=== PATIENT | female | born 1975 | race Caucasian/White ===

== ENCOUNTER 2018-03-07 20:27 | Emergency (ER) | payer BC ==
[2018-03-07] MEDS ORDERED: Ketorolac 30 MG/ML SDV IVPUSH ONE (20:35)
[2018-03-07] MEDS ORDERED: Sodium Chloride 0.9% 10 ML Syringe FLUSH PRN (20:35)
[2018-03-07] MEDS ORDERED: Sodium Chloride 0.9% 2.5 ML Syringe FLUSH PRN (20:35)
[2018-03-07] MEDS ORDERED: Ondansetron 4 MG/2 ML SDV IVPUSH ONE (20:35)
[2018-03-07] MEDS ORDERED: Sodium Chloride 0.9% 1,000 ML IV ONE (20:35)
--- NOTE | 2018-03-07 20:36 | EDM.PDOC ---
ED HPI GENERAL MEDICAL PROBLEM - General Chief Complaint: Headache Stated Complaint: BAD MIGRANE Time Seen by Provider: 03/07/18 20:46 Source of Information: Reports: Patient History Limitations: Reports: No Limitations - History of Present Illness INITIAL COMMENTS - FREE TEXT/NARRATIVE: HISTORY AND PHYSICAL: History of present illness: Patient is a 43-year-old female here with complaint of migraine. She states that she has a history of migraine headaches and hasn't had one this bad in approximately 6 weeks. She has been getting migraines about 3 times a week. Used to be on sumatriptan injections for migraine but reports that these were too expensive and is no longer taking this. She does not have a primary care provider Jamal. He states this current migraine started this morning and has progressively gotten worse throughout the day. She reports she started vomiting an hour and a half ago and has had 2 episodes of vomiting. She states pain is all over her head and throbbing pressure. She reports photophobia and phonophobia, nausea, vomiting. She denies any abdominal pain, chest pain, shortness of breath, diarrhea, fever, chills. Review of systems: As per history of present illness and below otherwise all systems reviewed and negative. Past medical history: As per history of present illness and as reviewed below otherwise noncontributory. Surgical history: As per history of present illness and as reviewed below otherwise noncontributory. Social history: No reported history of drug or alcohol abuse. Family history: As per history of present illness and as reviewed below otherwise noncontributory. Physical exam: General: Patient sitting comfortably in no acute distress and nontoxic appearing HEENT: Atraumatic, normocephalic, pupils reactive, negative for conjunctival pallor or scleral icterus, mucous membranes moist, throat clear, neck supple, nontender, trachea midline. No meningeal signs. Lungs: Clear to auscultation, breath sounds equal bilaterally, chest nontender. Heart: S1S2, regular, negative for clicks, rubs, or overt murmur. Abdomen: Soft, nondistended, nontender. Negative for masses or hepatosplenomegaly. Negative for costovertebral tenderness. Pelvis: Stable nontender. Genitourinary: Deferred. Rectal: Deferred. Extremities: Atraumatic, negative for cords or calf pain. Neurovascular unremarkable. Neuro: Awake, alert, oriented. Cranial nerves II through XII unremarkable. Cerebellum unremarkable. Motor and sensory unremarkable throughout. Exam nonfocal. Notes: Diagnostics: Therapeutics: 1L NS IV 30mg Toradol IV 4mg Zofran IV 50mg Benadryl IV 10mg Reglan IV 1mg Ativan IV Prescriptions: None Impression: Migraine Plan: Signed out to Dr. Adam at 2200 1. Drink plenty of fluids and take Excedrin as needed for headache 2. Follow up with primary care provider to further address migraines 3. Return to ED as needed as discussed Definitive disposition and diagnosis as appropriate pending reevaluation and review of above. head Pain Score (Numeric/FACES): 9 - Related Data Allergies Allergy/AdvReac Type Severity Reaction Status Date / Time codeine Allergy Hives Verified 03/07/18 20:48 Home Meds: Home Meds Cyanocobalamin (Vitamin B12) [Vitamin B12] 1 tab PO DAILY 03/07/18 [History] Magnesium 0 tab PO DAILY 03/07/18 [History] ED ROS GENERAL - Review of Systems Review Of Systems: ROS reveals no pertinent complaints other than HPI. - Physical Exam Exam: See Below (see dictation) Course - Vital Signs Last Recorded V/S: Last Vital Signs Temp 36.1 C 03/07/18 20:27 Pulse 58 L 03/07/18 21:15 Resp 18 03/07/18 21:15 BP 131/87 03/07/18 21:15 Pulse Ox 96 03/07/18 21:15 - Orders/Labs/Meds Orders: Active Orders 24 hr Category Date Time Status Sodium Chloride 0.9% [Saline Flush] Med 03/07/18 20:35 Active 10 ml FLUSH ASDIRECTED PRN Sodium Chloride 0.9% [Saline Flush] Med 03/07/18 20:35 Active 2.5 ml FLUSH ASDIRECTED PRN Saline Lock Insert [OM.PC] Stat Oth 03/07/18 20:35 Ordered Medication Orders Sodium Chloride (Saline Flush) 10 ml FLUSH ASDIRECTED PRN PRN Reason: Keep Vein Open Sodium Chloride (Saline Flush) 2.5 ml FLUSH ASDIRECTED PRN PRN Reason: Keep Vein Open Meds: Medications Generic Name Dose Route Start Last Admin Trade Name Freq PRN Reason Stop Dose Admin Sodium Chloride 10 ml 03/07/18 20:35 Saline Flush FLUSH ASDIRECTED PRN Keep Vein Open Sodium Chloride 2.5 ml 03/07/18 20:35 Saline Flush FLUSH ASDIRECTED PRN Keep Vein Open Discontinued Medications Generic Name Dose Route Start Last Admin Trade Name Jadq PRN Reason Stop Dose Admin Diphenhydramine HCl 50 mg 03/07/18 21:18 03/07/18 21:36 Benadryl IVPUSH 03/07/18 21:19 50 mg ONETIME ONE Administration Sodium Chloride 1,000 mls @ 999 mls/hr 03/07/18 20:35 03/07/18 20:47 Normal Saline IV 03/07/18 21:35 999 mls/hr STAT ONE Administration Ketorolac Tromethamine 30 mg 03/07/18 20:35 03/07/18 20:48 Toradol IVPUSH 03/07/18 20:36 30 mg ONETIME ONE Administration Lorazepam 1 mg 03/07/18 21:18 03/07/18 21:36 Ativan IVPUSH 03/07/18 21:19 1 mg ONETIME ONE Administration Metoclopramide HCl 10 mg 03/07/18 21:48 Reglan IVPUSH 03/07/18 21:49 ONETIME ONE Ondansetron HCl 4 mg 03/07/18 20:35 03/07/18 20:47 Zofran IVPUSH 03/07/18 20:36 4 mg ONETIME ONE Administration Departure - Departure Time of Disposition: 21:59 Disposition: Home, Self-Care 01 Condition: Good Clinical Impression: Migraine - Discharge Information Forms: ED Department Discharge Additional Instructions: The following information is given to patients seen in the emergency department who are being discharged to home. This information is to outline your options for follow-up care. We provide all patients seen in our emergency department with a follow-up referral. The need for follow-up, as well as the timing and circumstances, are variable depending upon the specifics of your emergency department visit. If you don't have a primary care physician on staff, we will provide you with a referral. We always advise you to contact your personal physician following an emergency department visit to inform them of the circumstance of the visit and for follow-up with them and/or the need for any referrals to a consulting specialist. The emergency department will also refer you to a specialist when appropriate. This referral assures that you have the opportunity for follow-up care with a specialist. All of these measure are taken in an effort to provide you with optimal care, which includes your follow-up. Under all circumstances we always encourage you to contact your private physician who remains a resource for coordinating your care. When calling for follow-up care, please make the office aware that this follow-up is from your recent emergency room visit. If for any reason you are refused follow-up, please contact the [facility] Emergency Department at and asked to speak to the emergency department charge nurse. [facility] Primary Care [address] [place] [address] [facility] [address] [place] [id number] 1. Drink plenty of fluids and take Excedrin as needed for headache 2. Follow up with primary care provider to further address migraines 3. Return to ED as needed as discussed - My Orders Last 24 Hours: My Active Orders 03/07/18 20:35 Sodium Chloride 0.9% [Saline Flush] 10 ml FLUSH ASDIRECTED PRN Sodium Chloride 0.9% [Saline Flush] 2.5 ml FLUSH ASDIRECTED PRN Saline Lock Insert [OM.PC] Stat - Assessment/Plan Last 24 Hours: My Active Orders 03/07/18 20:35 Sodium Chloride 0.9% [Saline Flush] 10 ml FLUSH ASDIRECTED PRN Sodium Chloride 0.9% [Saline Flush] 2.5 ml FLUSH ASDIRECTED PRN Saline Lock Insert [OM.PC] Stat
[2018-03-07] MEDS ORDERED: LORazepam 2 MG/ML SDV IVPUSH ONE (21:18)
[2018-03-07] MEDS ORDERED: diphenhydrAMINE 50 MG/ML SDV IVPUSH ONE (21:18)
[2018-03-07] MEDS ORDERED: Metoclopramide 10 MG/2 ML SDV IVPUSH ONE (21:48)
[2018-03-07] MEDS ORDERED: Acetaminophen/Butalbital/Caffeine 325-50-40 MG Tab PO ONE (22:30)
== END 2018-03-07 22:56 | disposition home or self-care (01) ==
LOC: MW.ED 20:27
DX: G43.909 Migraine, unspecified, not intractable, without status migrainosus (principal); Z88.5 Allergy status to narcotic agent
CPT/HCPCS: 96361; 96374; 96375; 99283; A9270; J1200; J1885; J2060; J2405; J2765; J7040

== ENCOUNTER 2018-08-10 12:04 | Emergency (ER) | payer BC ==
[2018-08-10] MEDS: Ondansetron 4 MG/2 ML SDV IVPUSH ONE (12:35)
[2018-08-10] MEDS: Sodium Chloride 0.9% 1,000 ML IV ONE ×2 (12:35→13:26)
[2018-08-10] MEDS: Ketorolac 30 MG/ML SDV IVPUSH ONE (12:36)
[2018-08-10] MEDS: Insulin Regular, Human 100 Units/ML 10 ML Vial IVPUSH ONE (12:43)
[2018-08-10] MEDS: LORazepam 2 MG/ML SDV IVPUSH ONE (13:21)
[2018-08-10] MEDS: diphenhydrAMINE 50 MG/ML SDV IVPUSH ONE (13:21)
--- NOTE | 2018-08-10 13:51 | EDM.PDOC ---
ED HPI GENERAL MEDICAL PROBLEM - General Chief Complaint: Headache Stated Complaint: MIGRANE Time Seen by Provider: 08/10/18 13:49 Source of Information: Reports: Patient - History of Present Illness INITIAL COMMENTS - FREE TEXT/NARRATIVE: HISTORY AND PHYSICAL: History of present illness: [Patient presents with migraine headache, she has a long history of migraines recent MRI of her head is on file however radiology is not read the film at she has been on multiple medication regimens with varying degrees of benefit and side effects No fever no vomiting no chills sweats no chest pain shortness breath dizziness palpitation no bowel or urine symptoms ] Review of systems: As per history of present illness and below otherwise all systems reviewed and negative. Past medical history: As per history of present illness and as reviewed below otherwise noncontributory. Surgical history: As per history of present illness and as reviewed below otherwise noncontributory. Social history: No reported history of drug or alcohol abuse. Family history: As per history of present illness and as reviewed below otherwise noncontributory. Physical exam: HEENT: Atraumatic, normocephalic, pupils reactive, negative for conjunctival pallor or scleral icterus, mucous membranes moist, throat clear, neck supple, nontender, trachea midline. Lungs: Clear to auscultation, breath sounds equal bilaterally, chest nontender. Heart: S1S2, regular, negative for clicks, rubs, or JVD. Abdomen: Soft, nondistended, nontender. Negative for masses or hepatosplenomegaly. Negative for costovertebral tenderness. Pelvis: Stable nontender. Genitourinary: Deferred. Rectal: Deferred. Extremities: Atraumatic, negative for cords or calf pain. Neurovascular unremarkable. Neuro: Awake, alert, oriented. Cranial nerves II through XII unremarkable. Cerebellum unremarkable. Motor and sensory unremarkable throughout. Exam nonfocal. Diagnostics: [MRI head on file from previous no radiology read available at this time ] Therapeutics: [] normal saline [place] Zofran Ativan Benadryl l Impression: [ migraine ] Definitive disposition and diagnosis as appropriate pending reevaluation and review of above. Headache Pain Score (Numeric/FACES): 10 - Related Data Allergies Allergy/AdvReac Type Severity Reaction Status Date / Time codeine Allergy Hives Verified 08/10/18 12:21 Home Meds: Home Meds Cyanocobalamin (Vitamin B12) [Vitamin B12] 1 tab PO DAILY 03/07/18 [History] Acetaminophen/Caffeine [Excedrin Tension Headache Cplt] 2 tab PO ASDIRECTED PRN 04/28/18 [History] Ascorbic Acid [Vitamin C] 1,000 mg PO DAILY 04/28/18 [History] Estradiol 1 mg PO DAILY 04/28/18 [History] Melatonin/Pyridoxine HCl (B6) [Melatonin 3 mg Tablet] 3 mg PO BEDTIME PRN [History] Multivitamin [Multivitamins] 1 each PO DAILY 04/28/18 [History] Past Medical History 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: Reports: Sleep 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: Neurological History: Reports: Migraines - Infectious Disease History Infectious Disease History: Reports: Chicken Pox - Past Surgical History GI Surgical History: Reports: Appendectomy Female Surgical History: Reports: Hysterectomy, Tubal Ligation Neurological Surgical History: Reports: Laminectomy, Spinal Fusion Musculoskeletal Surgical History: Reports: Other (See Below) Other Musculoskeletal Surgeries/Procedures:: back surgery Social & Family History - Family History Family Medical History: Noncontributory - Tobacco Use Smoking Status *Q: Never Smoker - Caffeine Use Caffeine Use: Reports: Coffee - Recreational Drug Use Recreational Drug Use: No ED ROS GENERAL - Review of Systems Review Of Systems: See Below ED EXAM, GENERAL - Physical Exam Exam: See Below Course - Vital Signs Last Recorded V/S: Last Vital Signs Temp 97.4 F 08/10/18 12:17 Pulse 67 08/10/18 13:30 Resp 16 08/10/18 13:30 BP 137/72 08/10/18 13:30 Pulse Ox 98 08/10/18 13:30 - Orders/Labs/Meds Orders: Active Orders 24 hr Category Date Time Status Sodium Chloride 0.9% [Normal Saline] 1,000 ml Med 08/10/18 13:15 Active IV STAT Medication Orders Sodium Chloride (Normal Saline) 1,000 mls @ 999 mls/hr IV STAT ONE Stop: 08/10/18 14:15 Last Admin: 08/10/18 13:26 Dose: 999 mls/hr Meds: Medications Generic Name Dose Route Start Last Admin Trade Name Freq PRN Reason Stop Dose Admin Sodium Chloride 1,000 mls @ 999 mls/hr 08/10/18 13:15 08/10/18 13:26 Normal Saline IV 08/10/18 14:15 999 mls/hr STAT ONE Administration Discontinued Medications Generic Name Dose Route Start Last Admin Trade Name Ky PRN Reason Stop Dose Admin Diphenhydramine HCl 50 mg 08/10/18 13:15 08/10/18 13:21 Benadryl IVPUSH 08/10/18 13:16 50 mg ONETIME ONE Administration Sodium Chloride 1,000 mls @ 999 mls/hr 08/10/18 12:10 08/10/18 12:35 Normal Saline IV 08/10/18 13:10 999 mls/hr STAT ONE Administration Insulin Human Regular 2 unit 08/10/18 12:13 08/10/18 12:43 Novolin R IVPUSH 08/10/18 12:14 Not Given ONETIME ONE Protocol Ketorolac Tromethamine 30 mg 08/10/18 12:10 08/10/18 12:36 Toradol IVPUSH 08/10/18 12:11 30 mg ONETIME ONE Administration Lorazepam 1 mg 08/10/18 13:15 08/10/18 13:21 Ativan IVPUSH 08/10/18 13:16 1 mg ONETIME ONE Administration Ondansetron HCl 8 mg 08/10/18 12:10 08/10/18 12:35 Zofran IVPUSH 08/10/18 12:11 8 mg ONETIME ONE Administration Departure - Departure Time of Disposition: 13:51 Disposition: Home, Self-Care 01 Condition: Good Clinical Impression: Migraine - Discharge Information Referrals: Bree Walls FAB[employer]IC AWNING REPAIRER [Primary Care Provider] - Additional Instructions: The following information is given to patients seen in the emergency department who are being discharged to home. This information is to outline your options for follow-up care. We provide all patients seen in our emergency department with a follow-up referral. The need for follow-up, as well as the timing and circumstances, are variable depending upon the specifics of your emergency department visit. If you don't have a primary care physician on staff, we will provide you with a referral. We always advise you to contact your personal physician following an emergency department visit to inform them of the circumstance of the visit and for follow-up with them and/or the need for any referrals to a consulting specialist. The emergency department will also refer you to a specialist when appropriate. This referral assures that you have the opportunity for follow-up care with a specialist. All of these measure are taken in an effort to provide you with optimal care, which includes your follow-up. Under all circumstances we always encourage you to contact your private physician who remains a resource for coordinating your care. When calling for follow-up care, please make the office aware that this follow-up is from your recent emergency room visit. If for any reason you are refused follow-up, please contact the [facility] emergency department at and asked to speak to the emergency department charge nurse. - My Orders Last 24 Hours: My Active Orders 08/10/18 13:15 Sodium Chloride 0.9% [Normal Saline] 1,000 ml IV STAT - Assessment/Plan Last 24 Hours: My Active Orders 08/10/18 13:15 Sodium Chloride 0.9% [Normal Saline] 1,000 ml IV STAT
== END 2018-08-10 14:26 | disposition home or self-care (01) ==
LOC: MW.ED 12:04
DX: G43.909 Migraine, unspecified, not intractable, without status migrainosus (principal); Z79.899 Other long term (current) drug therapy; Z88.5 Allergy status to narcotic agent
CPT/HCPCS: 96361; 96374; 96375; 99283; J1200; J1885; J2060; J2405; J7040

== ENCOUNTER 2018-11-11 19:34 | Emergency (ER) | payer BC, OTHER, SELFPAY ==
--- NOTE | 2018-11-11 19:47 | EDM.PDOC ---
ED HPI GENERAL MEDICAL PROBLEM - General Stated Complaint: cold symptoms Time Seen by Provider: 11/11/18 19:39 Source of Information: Reports: Patient History Limitations: Reports: No Limitations - History of Present Illness INITIAL COMMENTS - FREE TEXT/NARRATIVE: HISTORY AND PHYSICAL: History of present illness: Review of systems: As per history of present illness and below otherwise all systems reviewed and negative. Past medical history: As per history of present illness and as reviewed below otherwise noncontributory. Surgical history: As per history of present illness and as reviewed below otherwise noncontributory. Social history: See social history for further information Family history: As per history of present illness and as reviewed below otherwise noncontributory. Physical exam: General: Well-developed and well-nourished 43-year-old female. Alert and oriented. Nontoxic appearing and in no acute distress. HEENT: Atraumatic, normocephalic, pupils equal and reactive bilaterally, negative for conjunctival pallor or scleral icterus, mucous membranes moist, maxillary sinus tenderness bilaterally, TMs normal bilaterally, throat clear, neck supple, nontender, trachea midline. No drooling or trismus noted. No meningeal signs. No hot potato voice noted. Lungs: Clear to auscultation, breath sounds equal bilaterally, chest nontender. Heart: S1S2, regular rate and rhythm without overt murmur Abdomen: Soft, nondistended, nontender. Skin: Intact, warm, dry. No lesions or rashes noted. Extremities: Atraumatic, moves all extremities per self without difficulty or deficits, negative for cords or calf pain. Neurovascular unremarkable. Neuro: Awake, alert, oriented. Cranial nerves II through XII unremarkable. Cerebellum unremarkable. Motor and sensory unremarkable throughout. Exam nonfocal. Notes: Supportive care measures were reviewed and discussed. Voices understanding and is agreeable to plan of care. Denies any further questions or concerns at this time. Diagnostics: None Therapeutics: Augmentin Prescription: Augmentin Impression: Sinusitis Plan: 1. Please use Tylenol and/or Ibuprofen as needed for pain and fever management. 2. Take antibiotic as directed. 3. Please follow up with your primary care provider. Return to the ED as needed as discussed. Definitive disposition and diagnosis as appropriate pending reevaluation and review of above. Forehead Pain Score (Numeric/FACES): 6 - Related Data Allergies Allergy/AdvReac Type Severity Reaction Status Date / Time codeine Allergy Hives Verified 11/11/18 19:49 Home Meds: Home Meds Cyanocobalamin (Vitamin B12) [Vitamin B12] 1 tab PO DAILY 03/07/18 [History] Acetaminophen/Caffeine [Excedrin Tension Headache Cplt] 2 tab PO ASDIRECTED PRN 04/28/18 [History] Ascorbic Acid [Vitamin C] 1,000 mg PO DAILY 04/28/18 [History] Estradiol 1 mg PO DAILY 04/28/18 [History] Melatonin/Pyridoxine HCl (B6) [Melatonin 3 mg Tablet] 3 mg PO BEDTIME PRN [History] Multivitamin [Multivitamins] 1 each PO DAILY 04/28/18 [History] Past Medical History 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: Reports: 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: Neurological History: Reports: Migraines - Infectious Disease History Infectious Disease History: Reports: Chicken Pox - Past Surgical History GI Surgical History: Reports: Appendectomy Female Surgical History: Reports: Hysterectomy, Tubal Ligation Neurological Surgical History: Reports: Laminectomy, Spinal Fusion Musculoskeletal Surgical History: Reports: Other (See Below) Other Musculoskeletal Surgeries/Procedures:: back surgery Social & Family History - Family History Family Medical History: Noncontributory - Caffeine Use Caffeine Use: Reports: Coffee ED ROS GENERAL - Review of Systems Review Of Systems: ROS reveals no pertinent complaints other than HPI. ED EXAM, GENERAL - Physical Exam Exam: See Below (See dictation) Course - Vital Signs Last Recorded V/S: Last Vital Signs Temp 98.1 F 11/11/18 19:47 Pulse 79 11/11/18 19:47 Resp BP 134/89 11/11/18 19:47 Pulse Ox 97 11/11/18 19:47 Departure - Departure Time of Disposition: 19:53 Disposition: Home, Self-Care 01 Clinical Impression: Sinusitis Qualifiers: Sinusitis location: maxillary Chronicity: unspecified Qualified Code(s): J32.0 - Chronic maxillary sinusitis - Discharge Information Instructions: Sinusitis, Adult, [id number] Referrals: PCP,Unknown [Primary Care Provider] - Additional Instructions: The following information is given to patients seen in the emergency department who are being discharged to home. This information is to outline your options for follow-up care. We provide all patients seen in our emergency department with a follow-up referral. The need for follow-up, as well as the timing and circumstances, are variable depending upon the specifics of your emergency department visit. If you don't have a primary care physician on staff, we will provide you with a referral. We always advise you to contact your personal physician following an emergency department visit to inform them of the circumstance of the visit and for follow-up with them and/or the need for any referrals to a consulting specialist. The emergency department will also refer you to a specialist when appropriate. This referral assures that you have the opportunity for follow-up care with a specialist. All of these measure are taken in an effort to provide you with optimal care, which includes your follow-up. Under all circumstances we always encourage you to contact your private physician who remains a resource for coordinating your care. When calling for follow-up care, please make the office aware that this follow-up is from your recent emergency room visit. If for any reason you are refused follow-up, please contact the [facility] Emergency Department at and asked to speak to the emergency department charge nurse. [facility] Primary Care [address] [place] [address] [id number] [address] [id number]
[2018-11-11] MEDS ORDERED: Amoxicillin/Clavulanate K 875-125 MG Tab PO ONE (19:54)
== END 2018-11-11 20:02 | disposition home or self-care (01) ==
LOC: MW.ED 19:34
DX: J32.0 Chronic maxillary sinusitis (principal); Z79.899 Other long term (current) drug therapy; Z88.5 Allergy status to narcotic agent
CPT/HCPCS: 99283; A9270

== ENCOUNTER 2019-02-27 14:46 | Emergency (ER) | payer SELFPAY ==
--- NOTE | 2019-02-27 16:01 | EDM.PDOC ---
ED HPI GENERAL MEDICAL PROBLEM - General Chief Complaint: Upper Extremity Injury/Pain Stated Complaint: WRIST INJURY Time Seen by Provider: 02/27/19 15:15 Source of Information: Reports: Patient History Limitations: Reports: No Limitations - History of Present Illness INITIAL COMMENTS - FREE TEXT/NARRATIVE: HISTORY AND PHYSICAL: History of present illness: Patient is a 44-year-old female who presents to the emergency room with complaints of left wrist pain which she has noticed 1 month. She states she has noticed that the area of pain does have a cyst like structure which fluctuates in size. She states it's tender to palpation and painful when she flexes or extends at the wrist. She denies any injury, trauma or falls. She denies any numbness or tingling of the distal fingertips. Review of systems: As per history of present illness and below otherwise all systems reviewed and negative. Past medical history: As per history of present illness and as reviewed below otherwise noncontributory. Surgical history: As per history of present illness and as reviewed below otherwise noncontributory. Social history: See social history for further information Family history: As per history of present illness and as reviewed below otherwise noncontributory. Physical exam: General: Well-developed and well-nourished 44-year-old female. Alert and oriented. Nontoxic appearing and in no acute distress. HEENT: Atraumatic, normocephalic, pupils equal and reactive bilaterally, negative for conjunctival pallor or scleral icterus, mucous membranes moist, trachea midline. No drooling or trismus noted. No meningeal signs. No hot potato voice noted. Lungs: Clear to auscultation, breath sounds equal bilaterally, chest nontender. Heart: S1S2, regular rate and rhythm without overt murmur. Skin: Dimes sized cyst noted to the radial dorsal aspect of the wrist. No erythema noted. Intact, warm, dry. No lesions or rashes noted. Extremities: Atraumatic, moves all extremities per self without difficulty or deficits, negative for cords or calf pain. Dimes sized cyst noted to the radial dorsal aspect of the wrist. Strong radial pulse. Capillary refill less than 3 seconds. Neurovascular unremarkable. Neuro: Awake, alert, oriented. Cranial nerves II through XII unremarkable. Cerebellum unremarkable. Motor and sensory unremarkable throughout. Exam nonfocal. Notes: X-ray shows no acute findings. Supportive care measures were reviewed and discussed. Voices understanding and is agreeable to plan of care. Denies any further questions or concerns at this time. Diagnostics: X-ray Therapeutics: Wrist Splint Prescription: Diclofenac Impression: Ganglion Cyst, Left Plan: 1. Rest, ice, elevate the affected extremity. Please wear the splint as directed. 2. Medication as discussed. 3. Follow up with the General Surgeon as we discussed for cyst removal. Return to the ED as needed and as discussed. Definitive disposition and diagnosis as appropriate pending reevaluation and review of above. left wrist Pain Score (Numeric/FACES): 7 - Related Data Allergies Allergy/AdvReac Type Severity Reaction Status Date / Time codeine Allergy Hives Verified 02/27/19 15:34 Home Meds: Home Meds Cyanocobalamin (Vitamin B12) [Vitamin B12] 1 tab PO DAILY 03/07/18 [History] Acetaminophen/Caffeine [Excedrin Tension Headache Cplt] 2 tab PO ASDIRECTED PRN 04/28/18 [History] Ascorbic Acid [Vitamin C] 1,000 mg PO DAILY 04/28/18 [History] Estradiol 1 mg PO DAILY 04/28/18 [History] Melatonin/Pyridoxine HCl (B6) [Melatonin 3 mg Tablet] 3 mg PO BEDTIME PRN [History] Multivitamin [Multivitamins] 1 each PO DAILY 04/28/18 [History] Acetaminophen/HYDROcodone [[place] 325-5 MG] 1 dose PO Q4H #20 tablet 02/27/19 [Rx ] Diclofenac Sodium [Voltaren] 75 mg PO BIDMEALS PRN #30 tab.cr 02/27/19 [Rx] Rizatriptan Benzoate [Rizatriptan] 10 mg PO ASDIRECTED 02/27/19 [History] Past Medical History HEENT History: Reports: Sinusitis Cardiovascular History: Reports: None 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: Reports: Sleep Apnea Gastrointestinal History: Reports: None Genitourinary History: Reports: None SH[employer] 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: Musculoskeletal History: Reports: None Neurological History: Reports: Migraines Psychiatric History: Reports: Anxiety, Depression Endocrine/Metabolic History: Reports: None Hematologic History: Reports: None Immunologic History: Reports: None Oncologic (Cancer) History: Reports: None Dermatologic History: Reports: None - Infectious Disease History Infectious Disease History: Reports: Chicken Pox - Past Surgical History HEENT Surgical History: Reports: None Cardiovascular Surgical History: Reports: None Respiratory Surgical History: Reports: None GI Surgical History: Reports: Appendectomy Female Surgical History: Reports: Hysterectomy, Tubal Ligation Endocrine Surgical History: Reports: None Neurological Surgical History: Reports: Laminectomy, Spinal Fusion Musculoskeletal Surgical History: Reports: Other (See Below) Other Musculoskeletal Surgeries/Procedures:: back surgery Oncologic Surgical History: Reports: None Dermatological Surgical History: Reports: None Social & Family History - Family History Family Medical History: Noncontributory - Tobacco Use Smoking Status *Q: Never Smoker Second Hand Smoke Exposure: No - Caffeine Use Caffeine Use: Reports: Coffee - Recreational Drug Use Recreational Drug Use: No Review of Systems - Review of Systems Review Of Systems: ROS reveals no pertinent complaints other than HPI. ED EXAM, GENERAL - Physical Exam Exam: See Below (See dictation) Course - Vital Signs Last Recorded V/S: Last Vital Signs Temp 96.2 F 02/27/19 15:30 Pulse 67 02/27/19 15:30 Resp 18 02/27/19 15:30 BP 140/92 H 02/27/19 15:30 Pulse Ox 97 02/27/19 15:30 - Orders/Labs/Meds Orders: Active Orders 24 hr Category Date Time Status DME for Discharge [COMM] Stat Oth 02/27/19 16:34 Ordered Departure - Departure Time of Disposition: 16:53 Disposition: Home, Self-Care 01 Clinical Impression: Ganglion cyst of wrist Qualifiers: Laterality: left Qualified Code(s): M67.432 - Ganglion, left wrist - Discharge Information Prescriptions: Acetaminophen/HYDROcodone [[place] 325-5 MG] 1 dose PO Q4H #20 tablet Diclofenac Sodium [Voltaren] 75 mg PO BIDMEALS PRN #30 tab.cr PRN Reason: Pain Instructions: Ganglion Cyst Referrals: PCP,Unknown [Primary Care Provider] - Forms: ED Department Discharge Additional Instructions: The following information is given to patients seen in the emergency department who are being discharged to home. This information is to outline your options for follow-up care. We provide all patients seen in our emergency department with a follow-up referral. The need for follow-up, as well as the timing and circumstances, are variable depending upon the specifics of your emergency department visit. If you don't have a primary care physician on staff, we will provide you with a referral. We always advise you to contact your personal physician following an emergency department visit to inform them of the circumstance of the visit and for follow-up with them and/or the need for any referrals to a consulting specialist. The emergency department will also refer you to a specialist when appropriate. This referral assures that you have the opportunity for follow-up care with a specialist. All of these measure are taken in an effort to provide you with optimal care, which includes your follow-up. Under all circumstances we always encourage you to contact your private physician who remains a resource for coordinating your care. When calling for follow-up care, please make the office aware that this follow-up is from your recent emergency room visit. If for any reason you are refused follow-up, please contact the [facility] at and asked to speak to the emergency department charge nurse. [facility] [address] [place] [id number] [facility] - General Surgery Professional Building [address] [place] [address], [address] [place] [address] 1. Rest, ice, elevate the affected extremity. Please wear the splint as directed. 2. Medication as discussed. 3. Follow up with the General Surgeon as we discussed for cyst removal. Return to the ED as needed and as discussed. - My Orders Last 24 Hours: My Active Orders 02/27/19 16:34 DME for Discharge [COMM] Stat - Assessment/Plan Last 24 Hours: My Active Orders 02/27/19 16:34 DME for Discharge [COMM] Stat
--- NOTE | 2019-02-27 16:49 | CR ---
Left wrist: Three views of the left wrist were obtained. Comparison: No previous wrist study. Deformity from old healed fracture is noted within the 5th metacarpal. Joint spaces are maintained within the left wrist. No acute fracture, dislocation or other bony abnormality is seen. Impression: Old healed fracture as noted above. Nothing acute is appreciated on left wrist exam. Diagnostic code #1 MTDD
== END 2019-02-27 17:09 | disposition home or self-care (01) ==
LOC: MW.ED 14:46
DX: M67.432 Ganglion, left wrist (principal); Z88.5 Allergy status to narcotic agent; Z79.899 Other long term (current) drug therapy
CPT/HCPCS: 73110-26-LT; 73110-LT; 99283-25